=== PATIENT | female | born 1975 | race Caucasian/White ===

== ENCOUNTER → 2017-06-10 | Outpatient (CLI) | payer BC ==
[~2017-06-10] MED LIST: COLC1CAP PO; IBUP80TA PO; INDO50CA PO; TYLE500T78 PO
== END ==
LOC: M RAD 12:41
PROVIDERS: ATTEND Physician Assistant
DX: R51 Headache (principal)

== ENCOUNTER → 2017-06-22 | Outpatient (CLI) | payer BC ==
--- NOTE | 2017-06-22 11:25 | REP ---
MRI BRAIN: REASON: Headaches. COMPARISON: 09/18/2006, which was normal. The exam was ordered with and without intravenous gadolinium, however, the technical note in the [employer] is that the patient refused the contrast injection. TECHNIQUE: Sagittal T1. Axial T2, FLAIR, DWI and ADC. FINDINGS: The craniocervical junction is normal. There is no cerebellar tonsillar ectopia. The visualized portions of the spinal cord and neural canal are within normal limits. The ventricles and sulci are within normal limits for the patient's age. There are no extra-axial fluid collections. There is o shift of the midline structures. The deep cerebral white matter is within normal limits. Diffusion weighted images and ADC mapping shows no signal abnormality. The orbital and petrous structures, cerebellopontine angles, and posterior fossa are within normal limits. The sella turcica, cavernous and paracavernous structures are within normal limits. The visualized portions of the paranasal sinuses and the mastoid air cells are clear. IMPRESSION: Unremarkable MRI examination of the brain. There has been no change from the prior exam. Signed by Blair Heredia DO 06/22/2017 01:22 P
== END ==
LOC: M RAD 08:14
PROVIDERS: ATTEND Physician Assistant
DX: R51 Headache (principal); E66.01 Morbid (severe) obesity due to excess calories

== ENCOUNTER 2017-08-02 11:26 | Emergency (ER) | payer BC ==
[~2017-08-02] VITALS: Ht 167.6 cm; Wt 113.6 kg
[2017-08-02] MEDS ORDERED: TYLE500T78 PO (11:35)
[2017-08-02] MEDS ORDERED: IBUP80TA PO (11:35)
[2017-08-02 12:39] LABS: BASO % 0.4 % (0.0-1.0); EOS # 0.2 K/mm3 (0.0-0.50); LARGE UNSTAINED CELL # 0.1 K/mm3 (0.0-0.4); LARGE UNSTAINED CELL % 1.1 % (0.0-4.0); LYMPH # 2.8 K/mm3 (1.5-4.5); LYMPH % 24.7 % (24.0-44.0); MEAN CORPUSCULAR HEMOGLOBIN 30.5 pg (27.0-33.0); MEAN CORPUSCULAR HGB CONC 35.6 g/dl (32.0-36.5); MEAN CORPUSCULAR VOLUME 85.7 fl (80.0-96.0); MONO # 0.3 K/mm3 (0.0-0.8); NEUTROPHILS # 7.3 K/mm3 (1.8-7.7); NEUTROPHILS % 68.8 % (36.0-66.0); PLATELET COUNT, AUTOMATED 321 k/mm3 (150-450); RED CELL DISTRIBUTION WIDTH 13.9 % (11.5-14.5); WHITE BLOOD COUNT 10.6 K/mm3 (4.0-10.0)
--- NOTE | 2017-08-02 12:43 | REP ---
Clinical: Pain and swelling. Technique: AP, lateral, bilateral oblique views of the left elbow. Findings: Degenerative changes are appreciated with subtle cortical irregularity and soft tissue calcifications along the medial and lateral humeral condyles and olecranon process. No acute fracture dislocation. No effusion. Impression: Degenerative changes. Mild posterior swelling. No acute fracture dislocation. Signed by Zacarias Koenig MD 08/02/2017 12:35 P
[2017-08-02 12:45] LABS: ANION GAP 9 MEQ/L (8-16); BLOOD UREA NITROGEN 9 MG/DL (7-18); CALCIUM LEVEL 8.5 MG/DL (8.5-10.1); CARBON DIOXIDE LEVEL 25 MEQ/L (21-32); CHLORIDE LEVEL 107 MEQ/L (98-107); CREATININE FOR GFR 0.55 MG/DL (0.55-1.02); GLOMERULAR FILTRATION RATE > 60.0 (>58); GLUCOSE, FASTING 85 MG/DL (70-105); SODIUM LEVEL 141 MEQ/L (136-145); URIC ACID 6.1 MG/DL (2.6-6.0)
[2017-08-02 13:36] LABS: ERYTHROCYTE SEDIMENTATION RATE 31 mm/hr (0-20)
[2017-08-02] MEDS ORDERED: INDO50CA PO (13:43)
[2017-08-02] MEDS ORDERED: COLC1CAP PO (13:43)
[2017-08-02 13:51] VITALS: BP 154/79
== END 2017-08-02 13:52 | disposition home or self-care (01) ==
LOC: M ED 11:26
DX: M19.022 Primary osteoarthritis, left elbow (principal); M10.022 Idiopathic gout, left elbow

== ENCOUNTER → 2020-02-07 | Outpatient (CLI) | payer BC ==
[~2020-02-07] MED LIST changes: -INDO50CA PO; +INDO50CA91 PO
--- NOTE | 2020-02-10 12:44 | SLEEPCENT ---
DATE OF STUDY: 02/07/2020 ORDERED BY: Dr. Vu Gonzalez Nocturnal polysomnography was performed for evaluation of sleep physiology in this patient with a history of snoring and irregular breathing in sleep. 7 hours and 34 minutes of data were reviewed. There were 418 minutes of sleep identified. Sleep latency was short at 6 minutes. Rapid eye movement (REM) latency was mildly prolonged at 113 minutes. Sleep architecture was fair with three REM cycles. Overall sleep efficiency 92.9%. The electrocardiogram showed sinus rhythm with an average heart rate of 70 beats per minute. EEG showed normal waveforms for awake and sleep. There were 56 respiratory events identified of 10 seconds in duration or greater for an apnea-hypopnea index of 8. The events were obstructive, not exclusive to sleep stage nor body posture. Arousals from respiratory events occurred 2.2 times per hour. Oxygen desaturations were seen into the low 80s. There was some activity in the limb leads, but limb movement arousals were only 2.7 per hour. IMPRESSION: Obstructive sleep apnea syndrome (G47.33). Apnea-hypopnea index 8. RECOMMENDATIONS: The patient should be encouraged to return to the sleep disorder center for pressure therapy. In the interim, alcohol and sedative avoidance should be practiced and caution exercised during the operation of motor vehicles.
== END ==
LOC: M SLEEP 19:34
PROVIDERS: ATTEND Internal Medicine Pulmonary Disease
DX: G47.33 Obstructive sleep apnea (adult) (pediatric) (principal)

== ENCOUNTER → 2020-02-29 | Outpatient (REF) | payer BC ==
[2020-02-29 13:25] LABS: BASO # 0.1 10^3/uL (0.0-0.2); BASO % 0.7 % (0.0-1.0); EOS # 0.3 10^3/uL (0.0-0.5); EOS % 2.7 % (0.0-3.0); HEMATOCRIT 39.6 % (36.0-47.0); HEMOGLOBIN 13.5 g/dl (12.0-15.5); LYMPH # 2.9 10^3/uL (1.5-5.0); LYMPH % 27.6 % (24.0-44.0); MEAN CORPUSCULAR HEMOGLOBIN 29.7 pg (27.0-33.0); MEAN CORPUSCULAR HGB CONC 34.1 g/dl (32.0-36.5); MONO # 0.5 10^3/uL (0.0-0.8); MONO % 5.1 % (0.0-5.0); NEUTROPHILS # 6.7 10^3/uL (1.5-8.5); NEUTROPHILS % 63.3 % (36.0-66.0); PLATELET COUNT, AUTOMATED 360 10^3/uL (150-450); RED BLOOD COUNT 4.55 10^6/uL (4.00-5.40); WHITE BLOOD COUNT 10.5 10^3/uL (4.0-10.0)
[2020-02-29 13:42] LABS: ERYTHROCYTE SEDIMENTATION RATE 46 mm/hr (0-20)
[2020-02-29 13:51] LABS: ALT/SGPT 22 U/L (12-78); C REACTIVE PROTEIN QUANTITATIV 1.17 MG/DL (0.00-0.30); CREATININE FOR GFR 0.51 MG/DL (0.55-1.30); GLOMERULAR FILTRATION RATE > 60.0 (>58)
== END ==
LOC: M LAB REF 12:59
PROVIDERS: ATTEND Internal Medicine
DX: L40.50 Arthropathic psoriasis, unspecified (principal); Z79.899 Other long term (current) drug therapy

== ENCOUNTER → 2020-03-30 | Outpatient (CLI) | payer BC ==
--- NOTE | 2020-04-05 09:09 | SLEEPCENT ---
DATE OF PROCEDURE: ORDERED BY: Vu Gonzalez DO Nocturnal polysomnography was performed for the titration of pressure therapy in this patient with obstructive sleep apnea syndrome. Apnea-hypopnea index of 8. For testing the patient was fit with a Resp[employer]ics Cassie View full face mask of small size; 4 cm of water pressure were applied to the circuit and the lights were extinguished. 8 hours and 3 minutes of data were reviewed. There were 370.5 minutes of sleep identified. Sleep latency was prolonged 50.5 minutes. Rapid eye movement (REM) latency was normal at 97 minutes. Sleep architecture improved with optimal pressure therapy. There were 3 REM cycles noted. Overall sleep efficiency was 79%. The patient's electrocardiogram showed a sinus rhythm with an average heart rate of 80 beats per minute. Electroencephalogram (EEG) showed normal waveforms for awake and sleep. Respiratory events were reasonably palliated with CPAP at a pressure of +6. Remaining measures of sleep physiology were normal. IMPRESSION: Obstructive sleep apnea syndrome (G47.33). RECOMMENDATIONS: Nightly use of pressure therapy 6 cm of water.
== END ==
LOC: M SLEEP 20:00
PROVIDERS: ATTEND Internal Medicine Pulmonary Disease
DX: G47.33 Obstructive sleep apnea (adult) (pediatric) (principal)

== ENCOUNTER 2020-05-06 20:28 | Day surgery (SDC) | payer BC ==
[~2020-05-06] VITALS: Ht 165.1 cm; Wt 111.4 kg
[2020-05-06] MEDS ORDERED: LEFL1TAB4 PO (20:43)
[2020-05-06] MEDS ORDERED: NS 1,000 ML IV SCH (21:29)
[2020-05-06] MEDS ORDERED: MORPHINE 4 MG/ML 1ML VIAL/SYRINGE (J2270) IV ONE (21:30)
[2020-05-06 21:40] LABS: BASO # 0.1 10^3/uL (0.0-0.2); BASO % 0.5 % (0.0-1.0); EOS # 0.3 10^3/uL (0.0-0.5); HEMATOCRIT 38.6 % (36.0-47.0); HEMOGLOBIN 13.3 g/dl (12.0-15.5); LYMPH # 3.3 10^3/uL (1.5-5.0); MEAN CORPUSCULAR HEMOGLOBIN 29.1 pg (27.0-33.0); MEAN CORPUSCULAR HGB CONC 34.5 g/dl (32.0-36.5); MEAN CORPUSCULAR VOLUME 84.5 fl (80.0-96.0); MONO # 0.8 10^3/uL (0.0-0.8); MONO % 4.9 % (0.0-5.0); NEUTROPHILS # 11.2 10^3/uL (1.5-8.5); NEUTROPHILS % 71.2 % (36.0-66.0); PLATELET COUNT, AUTOMATED 319 10^3/uL (150-450); RED BLOOD COUNT 4.57 10^6/uL (4.00-5.40); WHITE BLOOD COUNT 15.7 10^3/uL (4.0-10.0)
[2020-05-06] MEDS: ONDANSETRON 4MG/2ML VIAL IV ONE ×2 (21:47→21:51)
[2020-05-06 22:09] LABS: ALBUMIN 3.5 GM/DL (3.2-5.2); ALT/SGPT 40 U/L (12-78); BILIRUBIN,DIRECT < 0.1 MG/DL (0.0-0.2); BILIRUBIN,TOTAL 0.3 MG/DL (0.2-1.0); BLOOD UREA NITROGEN 8 MG/DL (7-18); CALCIUM LEVEL 8.4 MG/DL (8.5-10.1); CARBON DIOXIDE LEVEL 26 MEQ/L (21-32); CHLORIDE LEVEL 108 MEQ/L (98-107); GLOMERULAR FILTRATION RATE > 60.0 (>58); GLUCOSE, FASTING 100 MG/DL (70-100); LIPASE 75 U/L (73-393); POTASSIUM SERUM 3.7 MEQ/L (3.5-5.1); SODIUM LEVEL 142 MEQ/L (136-145); TOTAL PROTEIN 7.1 GM/DL (6.4-8.2)
[2020-05-06 22:13] LABS: HCG, SERUM QUALITATIVE NEGATIVE (NEGATIVE)
[2020-05-06] MEDS ORDERED: ISOVUE-370 76% 100ML VIAL As Ordered ONE (22:14)
--- NOTE | 2020-05-06 22:48 | REPVR ---
PROCEDURE INFORMATION: Exam: CT Abdomen And Pelvis With Contrast Exam date and time: 05/06/2020 10:21 PM Age: 45 years old Clinical indication: Abdominal pain; Localized; Right lower quadrant (rlq); Additional info: Central/rlq abd pain TECHNIQUE: Imaging protocol: Computed tomography of the abdomen and pelvis with intravenous contrast. Radiation optimization: All CT scans at this facility use at least one of these dose optimization techniques: automated exposure control; mA and/or kV adjustment per patient size (includes targeted exams where dose is matched to clinical indication); or iterative reconstruction. Contrast material: ISOVUE 370; Contrast volume: 100 ml; Contrast route: IV; COMPARISON: CT ABD PELVIS W/O CONTRAST 02/22/2014 12:08 PM (The report from this study was not available for review at the time of this interpretation.) FINDINGS: Lungs: The imaged portions of the lung bases are clear. The lungs were not fully imaged. Heart: No cardiomegaly or pericardial effusion. Diaphragm: Intact. Liver: The attenuation of the liver is more than 40 Hounsfield units lower in attenuation compared to the spleen, which is compatible with fatty liver infiltration. No liver lesion is seen. The contour of the liver is smooth. The liver is enlarged and measures 19.2 cm in craniocaudal dimension at the level of the right midclavicular line. Gallbladder and bile ducts: No calcified gallstones are noted. No gallbladder wall thickening, pericholecystic fluid, or pericholecystic inflammatory changes are identified. No dilation of the bile ducts is noted. No calcified stones are seen in the common bile duct. Pancreas: Normal. No dilation of the main pancreatic duct is noted. There is no inflammatory fat stranding around the pancreas to suggest acute pancreatitis. Spleen: Normal. No splenomegaly is noted. Adrenals: Normal. No adrenal mass is noted. Kidneys and ureters: The kidneys are normal in appearance. No renal lesion is noted. No stones are noted in the kidneys or ureters. There is no hydronephrosis or hydroureter. There are no wedge-shaped areas of low attenuation in the kidneys to suggest pyelonephritis. There is no renal abscess or perinephric fluid collection. Stomach and bowel: There is thickening of the wall of the gastric antrum. The small bowel is unremarkable. There is no evidence for a bowel obstruction, diverticulosis, diverticulitis, colitis, perforated viscus, pneumatosis intestinalis, intussusception, or volvulus. Appendix: The appendix is dilated, particularly at its distal portion, measuring up to 10 mm in diameter and there is mild inflammatory fat stranding around the distal portion of the appendix, which are findings compatible with acute appendicitis (images 55-59 of the coronal series 202). The appendix extends into the lower mid abdomen. No rupture of the appendix is noted. There is no appendicolith. Intraperitoneal space: No free air. No ascites. No asbcess. Retroperitoneal space: No fluid collection. No mass. Vasculature: The abdominal aorta is patent, normal in caliber, and there is no dissection. The iliac arteries, common femoral arteries, renal arteries, celiac artery, superior mesenteric artery, and inferior mesenteric artery are patent. The common femoral veins, iliac veins, inferior vena cava, hepatic veins, portal veins, splenic vein, superior mesenteric vein, inferior mesenteric vein, and renal veins are patent. Lymph nodes: No enlarged lymph nodes. Bladder: The partially distended urinary bladder is unremarkable. No stones or masses are seen in the bladder. Reproductive: The uterus is anterverted and unremarkable. The ovaries are unremarkable. Bones/joints: There is no fracture or dislocation. Incidental note is made of a small bone island in the left iliac bone that is unchanged compared to the prior CT abdomen and pelvis on 02/22/2014. There are degenerative changes in the lower lumbar spine. Soft tissues: Unremarkable. No hernia. No soft tissue fluid collection. IMPRESSION: 1. Acute appendicitis. No rupture of the appendix or abscess. 2. Enlarged, fatty liver. Electronically signed by: Rogelio Campuzano On 05/06/2020 22:47:19 PM
[2020-05-06] MEDS ORDERED: ERTAPENEM SODIUM 1 GM in NS MINI-BAG PLUS 50 ML IV ONE (23:00)
--- NOTE | 2020-05-06 23:15 | HPEPDOC ---
General Surgery H&P Date of Admission May 06, 2020 History and Physical CHIEF COMPLAINT: abdominal pain HISTORY OF PRESENT ILLNESS: Patient presents with one day history of abdominal pain and nausea that started roughly at 10 am today. ALLERGIES: Please see below. HOME MEDICATIONS: Please see below. PAST MEDICAL HISTORY: 1. rheumatoid arthritis 2. morbid obesity 3. sleep apnea. PAST SURGICAL HISTORY: 1. psoriatric arthritis PERSONAL/SOCIAL HISTORY: Denies smoking, alcohol use, or recreational drug use. REVIEW OF SYSTEMS: GENERAL: Denies chills, fatigue, fever, weight gain and weight loss. HEENT: Denies blurred vision and double vision. Denies ear symptoms. Denies hoarseness. NECK: Denies any neck pain. CARDIOVASCULAR: Denies chest pain and palpitations. MUSCULOSKELETAL: reports joint pains h/o psoriatric arthritis, no use of steroids. SKIN: Denies rash. NEUROLOGIC: Denies headache, stroke and transient ischemic attack. PSYCHIATRIC: Denies anxiety and depression. ENDOCRINE: Denies thyroid disease. HEMATOLOGY/ONCOLOGY: Denies any bleeding or clotting disorder. HEART: Denies any chest pains, palpitations, paroxysmal dyspnea, orthopnea. PULMONARY: recently diagnosed with sleep apnea on cpap since last . GASTROINTESTINAL: see HPI. GENITOURINARY: Denies dysuria, frequency, hematuria and nocturia. ENDOCRINE: Denies polydipsia, polyphagia, polyuria, heat or cold intolerance. INFECTIOUS: Denies any recent upper respiratory tract infection, UTI, need for use of antibiotics. NUTRITION: reports fair appetite. PHYSICAL EXAMINATION: VITAL SIGNS: Please see below. GENERAL APPEARANCE: mildly uncomfortable, not ill appearing. Awake, alert, oriented. HEENT: Normocephalic, atraumatic. [place] palpebral conjunctivae. Anicteric sclerae. Lips moist. CHEST: No chest wall abnormalities. Normal respiratory motion/effort. NECK: Supple. No thyromegaly. No lymphadenopathies. LUNGS: Lung sounds are clear to auscultation bilaterally. No wheezing appreciated. HEART: No chest wall abnormalities. Heart rate and rhythm are regular with no murmurs. ABDOMEN: obese abdomen, nondistended mild tenderness over suprapubic and rlq area with mild guarding. SKIN: Warm, moist. EXTREMITIES: Extremities have no deformities. No edema identified. NEUROLOGICAL: awake, alert, oriented. ANCILLARIES: . LABORATORY DATA: Please see below. MICROBIOLOGY: Please see below. IMAGING: CT abdomen and pelvis acute appendicitis IMPRESSION AND PLAN: Acute appendicitis with localized peritonitis. Patient appears to have early/noncomplicated appendicitis. We discussed the treatment options which includes appendectomy and nonoperative treatment with IV antibiotics; the risks and benefits of treatment and nontreatment. The most expedient way for full recovery still remains operative treatment. She was counseled on laparoscopic appendectomy Risks of procedures, benefits, details of the procedure explained to the patient and consent has been obtained. She receive a dose of invanz from the emergency room doctor which should be a sufficient perioperative dose. Vital Signs Vital Signs Date Time Temp Pulse Resp B/P (MAP) Pulse Ox O2 Delivery O2 Flow Rate FiO2 05/06/20 22:01 170/72 (104) 05/06/20 21:58 94 98 05/06/20 20:29 99.8 16 Room Air Laboratory Data Labs 24H Laboratory Tests 2 05/06/20 21:30: Immature Granulocyte % (Auto) 0.4, Neutrophils (%) (Auto) 71.2H, Lymphocytes (%) (Auto) 21.0L, Monocytes (%) (Auto) 4.9, Eosinophils (%) (Auto) 2.0, Basophils (%) (Auto) 0.5, Neutrophils # (Auto) 11.2H, Lymphocytes # (Auto) 3.3, Monocytes # (Auto) 0.8, Eosinophils # (Auto) 0.3, Basophils # (Auto) 0.1, Nucleated Red Blood Cells % (auto) 0.0, Urine Color YELLOW, Urine Appearance CLEAR, Urine pH 6.0, Urine Specific [place] 1.014, Urine Protein NEGATIVE, Urine Glucose (UA) NEGATIVE, Urine Ketones NEGATIVE, Urine Blood NEGATIVE, Urine Nitrite NEGATIVE, Urine Bilirubin NEGATIVE, Urine Urobilinogen 0.2, Urine Leukocyte Esterase NEGATIVE, Urine WBC (Auto) 0, Urine RBC (Auto) 1, Urine Hyaline Casts (Auto) 0, Urine Bacteria (Auto) NEGATIVE, Urine Squamous Epithelial Cells 0, Urine Mucus (Auto) SMALL, Urine Sperm (Auto) 05/06/20 21:31: Anion Gap 8, Glomerular Filtration Rate > 60.0, Calcium Level 8.4L, Total Bilirubin 0.3, Direct Bilirubin < 0.1, Aspartate Amino Transf (AST/SGOT) 21, Alanine Aminotransferase (ALT/SGPT) 40, Alkaline Phosphatase 86, Total Protein 7.1, Albumin 3.5, Albumin/Globulin Ratio 1.0L, Lipase 75, Human Chorionic Gonadotropin, Qual NEGATIVE CBC/BMP Laboratory Tests 05/06/20 21:30 05/06/20 21:31 Home Medications Scheduled Leflunomide (Leflunomide) 20 Mg Tablet, 20 MG PO QHS, (Reported) Allergies Coded Allergies: codeine (Verified Adverse Reaction, Mild, nausea/vomiting, 05/06/20) A-FIB/CHADSVASC A-FIB History Current/History of A-Fib/PAF?: No Current PO Anticoag Therapy: No SIMONE WORKMAN MD May 06, 2020 23:14
[2020-05-07] VITALS (11 sets, daily range): BP systolic 102–165; BP diastolic 75–94; O2SAT 94–97
[2020-05-07] MEDS: LR 1,000 ML IV SCH ×4 (00:04→18:17)
[2020-05-07] MEDS ORDERED: ERTAPENEM 1GM VIAL(INVanz) (J1335 PER 500MG) As Ordered ONE (00:09)
[2020-05-07] MEDS ORDERED: propofoL 200 MG/20 ML VIAL As Ordered ONE (02:28)
[2020-05-07] MEDS ORDERED: ROCURONIUM BROMIDE 50 MG/5 ML VIAL As Ordered ONE (02:28)
[2020-05-07] MEDS ORDERED: ONDANSETRON 4MG/2ML VIAL As Ordered ONE (02:28)
[2020-05-07] MEDS ORDERED: LIDOCAINE 2% 100MG/5ML SDV (FOR ANES.) As Ordered ONE (02:28)
[2020-05-07] MEDS ORDERED: dexameTHASONE 4 MG/ML 1ML VIAL (J1100 PER 1MG) As Ordered ONE (02:28)
[2020-05-07] MEDS ORDERED: MIDAZOLAM INJ 2MG/2ML VIAL (J2250 PER 1MG) As Ordered ONE (02:29)
[2020-05-07] MEDS ORDERED: fentaNYL 250 MCG/5 ML INJECTION (J3010) As Ordered ONE (02:30)
[2020-05-07] MEDS ORDERED: SUCCINYLCHOLINE 100 MG/5 ML SYRINGE (J0330) As Ordered ONE (02:35)
[2020-05-07] MEDS ORDERED: BUPIVACAINE HCL 0.25% 30ML VIAL As Ordered ONE (02:35)
[2020-05-07] MEDS ORDERED: LIDOCAINE 1% SDV 30ML VIAL As Ordered ONE (02:35)
[2020-05-07] MEDS ORDERED: KETOROLAC 60 MG/2 ML VIAL As Ordered ONE (03:46)
[2020-05-07] MEDS ORDERED: SUGAMMADEX SODIUM 500 MG/5 ML VIAL (BRIDION) As Ordered ONE (03:46)
[2020-05-07] MEDS ORDERED: fentaNYL 100 MCG/2 ML INJECTION (J3010) IV PRN (04:45)
[2020-05-07] MEDS ORDERED: METOCLOPRAMIDE INJ 10MG/2ML VIAL (J2765 PER 1) IV PRN (04:45)
[2020-05-07] MEDS ORDERED: oxyCODONE 5MG TAB PO PRN (04:45)
[2020-05-07] MEDS ORDERED: ONDANSETRON 4MG/2ML VIAL IV PRN (04:45)
[2020-05-07] MEDS ORDERED: LR 1,000 ML IV SCH (04:45)
[2020-05-07] MEDS: ONDANSETRON 4MG/2ML VIAL IV PRN ×3 (05:17→20:49)
[2020-05-07] MEDS: PERCOCET 5MG/325MG TAB PO PRN ×2 (08:41→20:50)
[2020-05-07] MEDS: IBUPROFEN 600 MG TAB PO PRN ×2 (08:45→18:29)
[2020-05-08 02:00] VITALS: BP 141/73
[2020-05-08 06:00] VITALS: BP 133/70
[2020-05-08 07:47] LABS: BASO % 0.2 % (0.0-1.0); EOS % 0.2 % (0.0-3.0); HEMATOCRIT 33.6 % (36.0-47.0); LYMPH # 2.4 10^3/uL (1.5-5.0); LYMPH % 19.9 % (24.0-44.0); MEAN CORPUSCULAR HGB CONC 33.6 g/dl (32.0-36.5); MEAN CORPUSCULAR VOLUME 86.2 fl (80.0-96.0); MONO # 0.6 10^3/uL (0.0-0.8); NEUTROPHILS # 9.1 10^3/uL (1.5-8.5); NEUTROPHILS % 74.2 % (36.0-66.0); PLATELET COUNT, AUTOMATED 314 10^3/uL (150-450); WHITE BLOOD COUNT 12.3 10^3/uL (4.0-10.0)
[2020-05-08 07:48] LABS: HEMOGLOBIN 11.3 g/dl (12.0-15.5)
[2020-05-08 10:00] VITALS: BP 137/76
[2020-05-08] MEDS ORDERED: ONDA-83 PO (10:11)
[2020-05-08] MEDS ORDERED: IBUP-1022 PO (10:11)
== END 2020-05-08 11:38 | disposition home or self-care (01) ==
LOC: M ED 20:28 → M SDC 20:29 → ENRESERV 23:38 → M MSPAV 05-07 01:00 → M SDC 05-08 11:38
PROVIDERS: ATTEND Surgery
DX: K35.890 Other acute appendicitis without perforation or gangrene (principal); M06.9 Rheumatoid arthritis, unspecified; G47.30 Sleep apnea, unspecified; E66.01 Morbid (severe) obesity due to excess calories; Z88.5 Allergy status to narcotic agent; Z79.899 Other long term (current) drug therapy
CPT/HCPCS: 36415; 44970; 74177; 80048; 80076; 81001; 83690; 84703; 85025; 87486; 87581; 87633; 87798; 88304; 93041; 96361; 96365; 96375; 96376; 99285; J0330; J1100; J1335; J1885; J2250; J2405; J3010; Q9967

== ENCOUNTER → 2020-09-23 | Outpatient (CLI) | payer BC ==
[~2020-09-23] MED LIST changes: +IBUP-1022 PO; +LEFL1TAB4 PO; +ONDA-83 PO
[2020-09-23 09:53] LABS: BASO # 0.1 10^3/uL (0.0-0.2); BASO % 0.7 % (0.0-1.0); EOS # 0.2 10^3/uL (0.0-0.5); EOS % 2.3 % (0.0-3.0); HEMATOCRIT 41.2 % (36.0-47.0); HEMOGLOBIN 13.8 g/dl (12.0-15.5); LYMPH # 2.8 10^3/uL (1.5-5.0); LYMPH % 29.5 % (24.0-44.0); MEAN CORPUSCULAR HEMOGLOBIN 28.5 pg (27.0-33.0); MEAN CORPUSCULAR HGB CONC 33.5 g/dl (32.0-36.5); MEAN CORPUSCULAR VOLUME 85.1 fl (80.0-96.0); MONO # 0.4 10^3/uL (0.0-0.8); MONO % 4.1 % (0.0-5.0); NEUTROPHILS % 62.8 % (36.0-66.0); PLATELET COUNT, AUTOMATED 319 10^3/uL (150-450); RED BLOOD COUNT 4.84 10^6/uL (4.00-5.40); WHITE BLOOD COUNT 9.6 10^3/uL (4.0-10.0)
[2020-09-23 10:08] LABS: C REACTIVE PROTEIN QUANTITATIV 1.79 MG/DL (0.00-0.30)
[2020-09-23 10:18] LABS: ERYTHROCYTE SEDIMENTATION RATE 37 mm/hr (0-20)
== END ==
LOC: M LAB 09:23
PROVIDERS: ATTEND Internal Medicine
DX: Z51.81 Encounter for therapeutic drug level monitoring (principal); Z79.899 Other long term (current) drug therapy

== ENCOUNTER → 2020-11-16 | Outpatient (CLI) | payer BC ==
[2020-11-16 11:57] LABS: ALT/SGPT 37 U/L (12-78)
== END ==
LOC: M WUC 08:58
PROVIDERS: ATTEND Internal Medicine
DX: Z79.899 Other long term (current) drug therapy (principal)

== ENCOUNTER 2021-04-06 12:52 | Emergency (ER) | payer OTHER, BC ==
[~2021-04-06] VITALS: Ht 167.6 cm; Wt 112.1 kg
[2021-04-06] MEDS ORDERED: ACETAMINOPHEN 325 MG TAB PO ONE (14:20)
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
[2021-04-06] MEDS ORDERED: KETOROLAC 60MG 2ML VIAL IM ONE (15:10)
[2021-04-06 16:10] VITALS: BP 150/90
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
== END 2021-04-06 16:16 | disposition home or self-care (01) ==
LOC: M ED 12:52
DX: S20.212A Contusion of left front wall of thorax, initial encounter (principal); S13.4XXA Sprain of ligaments of cervical spine, initial encounter; S06.0X0A Concussion without loss of consciousness, initial encounter; M75.82 Other shoulder lesions, left shoulder; I10 Essential (primary) hypertension; V53.5XXA Driver of pick-up truck or van injured in collision with car, pick-up truck or van in traffic accident, initial encounter; Y92.9 Unspecified place or not applicable; Y93.9 Activity, unspecified; Y99.9 Unspecified external cause status; M51.34 Other intervertebral disc degeneration, thoracic region; Z79.899 Other long term (current) drug therapy; Z88.5 Allergy status to narcotic agent
CPT/HCPCS: 70450; 71101; 72125; 72128; 73030; 80047; 81001; 84484; 93005; 96372; 99284; J1885

== ENCOUNTER → 2021-04-15 | Outpatient (CLI) | payer OTHER, BC ==
--- NOTE | 2021-04-15 16:42 | REP ---
INDICATION: PAIN. COMPARISON: None. Prior three-view left shoulder series of 04/06/2021 reviewed TECHNIQUE: Single axillary view left shoulder was obtained FINDINGS: Once again, there are soft tissue calcifications adjacent to the humeral head in the anterior soft tissues. IMPRESSION: Soft tissue calcifications again noted. Chronic calcific supraspinatus tendinitis cannot be ruled out. Consider follow-up with MRI. <Electronically signed by Blair Heredia > 04/15/21 [id number]
== END ==
LOC: M SOG 14:18
PROVIDERS: ATTEND Orthopaedic Surgery Sports Medicine
DX: M75.32 Calcific tendinitis of left shoulder (principal); M25.512 Pain in left shoulder

== ENCOUNTER → 2021-04-24 | Outpatient (CLI) | payer OTHER, BC ==
--- NOTE | 2021-04-24 08:28 | REP ---
INDICATION: F/U FX Status post arthroplasty. COMPARISON: None. TECHNIQUE: AP view of the pelvis with neutral and frog-lateral views of the left hip. FINDINGS: Pelvis is intact and age-appropriate. Hip joints demonstrate increased sclerosis to the acetabular roof with associated joint space narrowing which is relatively symmetric bilaterally on AP pelvic radiograph. The left hip also demonstrates small amount of calcification adjacent to the greater trochanter suggesting an element of tendinopathy. No evidence for acute or healed fracture. IMPRESSION: Mild degenerative changes as noted above. <Electronically signed by Zacarias Koenig > 04/24/21 2018
== END ==
LOC: M SOG 08:47
PROVIDERS: ATTEND Orthopaedic Surgery Adult Reconstructive Orthopaedic Surgery
DX: M19.072 Primary osteoarthritis, left ankle and foot (principal); M25.562 Pain in left knee

== ENCOUNTER 2021-07-12 10:16 | Emergency (ER) | payer BC, OTHER ==
[~2021-07-12] VITALS: Ht 167.6 cm; Wt 106.7 kg
[2021-07-12] MEDS ORDERED: PENI500T PO (10:39)
[2021-07-12] MEDS ORDERED: NS 1,000 ML IV ONE (12:00)
[2021-07-12] MEDS ORDERED: AMPICILLIN SOD/SULBACTAM SOD 3 GM in D5W MINI-BAG PLUS 100 ML IV ONE (12:00)
[2021-07-12] MEDS ORDERED: KETOROLAC 30 MG/ML 1ML VIAL IV ONE (12:00)
[2021-07-12 13:03] LABS: BASO # 0.1 10^3/uL (0.0-0.2); BASO % 0.5 % (0.0-1.0); EOS % 0.3 % (0.0-3.0); HEMATOCRIT 45.2 % (36.0-47.0); LYMPH # 1.5 10^3/uL (1.5-5.0); LYMPH % 13.8 % (24.0-44.0); MEAN CORPUSCULAR HGB CONC 35.4 g/dl (32.0-36.5); MEAN CORPUSCULAR VOLUME 84.8 fl (80.0-96.0); MONO # 0.9 10^3/uL (0.0-0.8); MONO % 8.1 % (2.0-8.0); NEUTROPHILS # 8.1 10^3/uL (1.5-8.5); NEUTROPHILS % 76.7 % (36.0-66.0); PLATELET COUNT, AUTOMATED 322 10^3/uL (150-450); RED BLOOD COUNT 5.33 10^6/uL (4.00-5.40); WHITE BLOOD COUNT 10.5 10^3/uL (4.0-10.0)
[2021-07-12 13:17] LABS: BLOOD UREA NITROGEN 9 MG/DL (7-18); CALCIUM LEVEL 9.4 MG/DL (8.5-10.1); CARBON DIOXIDE LEVEL 25 MEQ/L (21-32); CHLORIDE LEVEL 105 MEQ/L (98-107); CREATININE FOR GFR 0.53 MG/DL (0.55-1.30); GLOMERULAR FILTRATION RATE > 60.0 (>58); GLUCOSE, FASTING 134 MG/DL (70-100); POTASSIUM SERUM 4.1 MEQ/L (3.5-5.1); SODIUM LEVEL 140 MEQ/L (136-145)
[2021-07-12] MEDS ORDERED: ISOVUE-370 76% 100ML VIAL As Ordered ONE (13:20)
--- NOTE | 2021-07-12 14:10 | REPVR ---
PROCEDURE INFORMATION: Exam: CT Maxillofacial With Contrast Exam date and time: 07/12/2021 12:30 PM Age: 46 years old Clinical indication: Right lower molar infection. TECHNIQUE: Imaging protocol: Computed tomography images of the face with intravenous contrast. Radiation optimization: All CT scans at this facility use at least one of these dose optimization techniques: automated exposure control; mA and/or kV adjustment per patient size (includes targeted exams where dose is matched to clinical indication); or iterative reconstruction. Contrast material: ISOVUE 370; Contrast volume: 75 ml; Contrast route: INTRAVENOUS (IV); COMPARISON: CT Head without contrast 04/06/2021 2:18 PM FINDINGS: Orbital cavity: Orbits are normal. Globes are unremarkable. Bones/joints: No acute fracture. Paranasal sinuses: Normal. No air-fluid levels. Soft tissues: There is soft tissue swelling and induration within the buccal and lingual soft tissues of the right mandible. Findings are consistent with underlying inflammation/infection. No discrete fluid or air collection is seen to suggest an abscess. Submandibular/Parotid glands: There is subtle asymmetric enlargement of the right submandibular gland. No abnormal calcifications are seen. IMPRESSION: 1. There is soft tissue swelling and induration within the buccal and lingual soft tissues of the right mandible. Findings are consistent with underlying inflammation/infection. No discrete fluid or air collection is seen to suggest an abscess. Close clinical and imaging followup is recommended to confirm resolution following treatment. 2. There is subtle asymmetric enlargement of the right submandibular gland. No abnormal calcifications are seen. Please correlate clinically. Electronically signed by: Monster Malik On 07/12/2021 14:10:00 PM
[2021-07-12] MEDS ORDERED: AUGM875T28 PO (14:18)
[2021-07-12] MEDS ORDERED: HYDR-4571 PO (14:22)
[2021-07-12] MEDS ORDERED: ONDANSETRON 4MG/2ML VIAL IV ONE (14:25)
[2021-07-12] MEDS ORDERED: MORPHINE 4 MG/ML 1ML VIAL/SYRINGE (J2270) IV ONE (14:25)
[2021-07-12 14:31] VITALS: BP 144/77
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
== END 2021-07-12 15:05 | disposition home or self-care (01) ==
LOC: M ED 10:16
DX: K02.9 Dental caries, unspecified (principal); Z79.899 Other long term (current) drug therapy; Z88.5 Allergy status to narcotic agent
CPT/HCPCS: 70487; 80048; 85025; 86140; 96365; 96366; 96375; 99283; J1885; J2270; J2405; Q9967

== ENCOUNTER → 2021-10-23 | Outpatient (REF) | payer BC ==
[~2021-10-23] MED LIST changes: +AUGM875T28 PO; +HYDR-4571 PO; +PENI500T PO
[2021-10-23 13:37] LABS: BASO # 0.1 10^3/uL (0.0-0.2); BASO % 0.9 % (0.0-1.0); EOS # 0.2 10^3/uL (0.0-0.5); EOS % 2.5 % (0.0-3.0); HEMATOCRIT 40.6 % (36.0-47.0); LYMPH # 2.9 10^3/uL (1.5-5.0); MEAN CORPUSCULAR HEMOGLOBIN 29.9 pg (27.0-33.0); MEAN CORPUSCULAR HGB CONC 34.5 g/dl (32.0-36.5); MEAN CORPUSCULAR VOLUME 86.8 fl (80.0-96.0); MONO # 0.6 10^3/uL (0.0-0.8); MONO % 6.5 % (2.0-8.0); NEUTROPHILS # 5.2 10^3/uL (1.5-8.5); NEUTROPHILS % 57.7 % (36.0-66.0); PLATELET COUNT, AUTOMATED 356 10^3/uL (150-450); RED BLOOD COUNT 4.68 10^6/uL (4.00-5.40); WHITE BLOOD COUNT 9.1 10^3/uL (4.0-10.0)
[2021-10-23 13:44] LABS: ALBUMIN 3.7 GM/DL (3.2-5.2); ALT/SGPT 36 U/L (12-78); BILIRUBIN,TOTAL 0.3 MG/DL (0.2-1.0); BLOOD UREA NITROGEN 10 MG/DL (7-18); C REACTIVE PROTEIN QUANTITATIV 1.15 MG/DL (0.00-0.30); CALCIUM LEVEL 9.1 MG/DL (8.5-10.1); CARBON DIOXIDE LEVEL 28 MEQ/L (21-32); CHLORIDE LEVEL 107 MEQ/L (98-107); CREATININE FOR GFR 0.47 MG/DL (0.55-1.30); GLOMERULAR FILTRATION RATE > 60.0 (>58); GLUCOSE, FASTING 114 MG/DL (70-100); POTASSIUM SERUM 4.2 MEQ/L (3.5-5.1); SODIUM LEVEL 141 MEQ/L (136-145); TOTAL PROTEIN 7.4 GM/DL (6.4-8.2)
[2021-10-23 14:16] LABS: ERYTHROCYTE SEDIMENTATION RATE 31 mm/hr (0-20)
== END ==
LOC: M LABDRWAD 13:03
PROVIDERS: ATTEND Nurse Practitioner
DX: M19.90 Unspecified osteoarthritis, unspecified site (principal)

== ENCOUNTER → 2021-12-24 | Outpatient (REF) | payer BC ==
[2021-12-26 08:12] LABS: LDL DIRECT 112 mg/dL (0-99)
== END ==
LOC: M LAB REF 12:17
PROVIDERS: ATTEND Registered Nurse
DX: E78.00 Pure hypercholesterolemia, unspecified (principal)

== ENCOUNTER → 2022-06-12 | Outpatient (CLI) | payer BC ==
[2022-06-12 14:57] LABS: BASO # 0.1 10^3/uL (0.0-0.2); BASO % 0.7 % (0.0-1.0); EOS # 0.2 10^3/uL (0.0-0.5); EOS % 2.4 % (0.0-3.0); HEMATOCRIT 39.6 % (36.0-47.0); HEMOGLOBIN 13.5 g/dl (12.0-15.5); LYMPH # 2.5 10^3/uL (1.5-5.0); LYMPH % 29.3 % (24.0-44.0); MEAN CORPUSCULAR HEMOGLOBIN 29.7 pg (27.0-33.0); MEAN CORPUSCULAR HGB CONC 34.1 g/dl (32.0-36.5); MONO # 0.4 10^3/uL (0.0-0.8); NEUTROPHILS # 5.4 10^3/uL (1.5-8.5); PLATELET COUNT, AUTOMATED 307 10^3/uL (150-450); RED BLOOD COUNT 4.55 10^6/uL (4.00-5.40); WHITE BLOOD COUNT 8.6 10^3/uL (4.0-10.0)
[2022-06-12 15:28] LABS: ALBUMIN 3.9 GM/DL (3.2-5.2); ALT/SGPT 52 U/L (12-78); BILIRUBIN,TOTAL 0.3 MG/DL (0.2-1.0); BLOOD UREA NITROGEN 10 MG/DL (7-18); C REACTIVE PROTEIN QUANTITATIV 1.18 MG/DL (0.00-0.30); CALCIUM LEVEL 9.4 MG/DL (8.5-10.1); CARBON DIOXIDE LEVEL 23 MEQ/L (21-32); CHLORIDE LEVEL 106 MEQ/L (98-107); GLOMERULAR FILTRATION RATE > 60.0 (>58); GLUCOSE, FASTING 200 MG/DL (70-100); POTASSIUM SERUM 3.7 MEQ/L (3.5-5.1); SODIUM LEVEL 141 MEQ/L (136-145); TOTAL PROTEIN 7.3 GM/DL (6.4-8.2)
[2022-06-12 16:04] LABS: ERYTHROCYTE SEDIMENTATION RATE 2 mm/hr (0-20)
== END ==
LOC: M LAB 14:07
PROVIDERS: ATTEND Internal Medicine Rheumatology
DX: Z51.81 Encounter for therapeutic drug level monitoring (principal); Z79.899 Other long term (current) drug therapy

== ENCOUNTER → 2022-10-09 | Outpatient (CLI) | payer BC ==
[~2022-10-09] MED LIST changes: +ISOVUE-370 76% 100ML VIAL As Ordered ONE
== END ==
LOC: M RAD 14:30
PROVIDERS: ATTEND Registered Nurse
DX: R42 Dizziness and giddiness (principal)

== ENCOUNTER → 2022-10-29 | Outpatient (REF) | payer BC ==
[~2022-10-29] MED LIST changes: -ISOVUE-370 76% 100ML VIAL As Ordered ONE
[2022-10-29 13:55] LABS: URIC ACID 6.6 MG/DL (3.1-7.8)
[2022-10-29 13:58] LABS: RHEUMATOID FACTOR QUANT < 3.5 IU/ML (<14)
== END ==
LOC: M LAB REF 12:27
PROVIDERS: ATTEND Registered Nurse
DX: L40.52 Psoriatic arthritis mutilans (principal); E11.9 Type 2 diabetes mellitus without complications

== ENCOUNTER → 2022-11-28 | Outpatient (CLI) | payer BC | LOC: M RAD 08:08 | PROVIDERS: ATTEND Registered Nurse | DX: L40.52 Psoriatic arthritis mutilans (principal); M25.78 Osteophyte, vertebrae ==

== ENCOUNTER → 2023-07-07 | Outpatient (REF) | payer BC ==
[2023-07-07 17:39] LABS: C REACTIVE PROTEIN QUANTITATIV 1.6 MG/DL (<1.0)
[2023-07-07 17:41] LABS: PHOSPHORUS LEVEL 4.3 MG/DL (2.5-4.9)
[2023-07-07 17:42] LABS: TOTAL 25(OH) VITAMIN D 18.2 NG/ML (20.0-100.0)
== END ==
LOC: M SFHCRHEU 10:44
PROVIDERS: ATTEND Internal Medicine
DX: M25.50 Pain in unspecified joint (principal); M79.10 Myalgia, unspecified site

== ENCOUNTER → 2023-07-17 | Outpatient (CLI) | payer BC | LOC: M PLAIMG 13:53 | PROVIDERS: ATTEND Internal Medicine | DX: R93.6 Abnormal findings on diagnostic imaging of limbs (principal); M25.441 Effusion, right hand; M94.241 Chondromalacia, joints of right hand; R60.0 Localized edema ==

== ENCOUNTER → 2024-09-22 | Outpatient (REF) | payer BC ==
[~2024-09-22] MED LIST changes: -LEFL1TAB4 PO; +LEFL20TA15 PO
== END ==
LOC: M SFHCRHEU 17:41
PROVIDERS: ATTEND Internal Medicine
DX: Z53.9 Procedure and treatment not carried out, unspecified reason (principal)

== ENCOUNTER → 2024-12-06 | Outpatient (REF) | payer BC ==
[2024-12-06 17:09] LABS: APPEARANCE, URINE CLEAR (CLEAR); BACTERIA, URINE AUTO NEGATIVE (NEGATIVE); BILIRUBIN, URINE AUTO NEGATIVE (NEGATIVE); BLOOD, URINE BLOOD NEGATIVE (NEGATIVE); COLOR, URINE YELLOW (YELLOW); GLUCOSE, URINE (UA) AUTO NEGATIVE (NEGATIVE); KETONE, URINE AUTO NEGATIVE (NEGATIVE); LEUKOCYTE ESTERASE, URINE AUTO NEGATIVE (NEGATIVE); MUCUS, URINE SMALL (NEGATIVE); NITRITE, URINE AUTO NEGATIVE (NEGATIVE); PROTEIN, URINE AUTO NEGATIVE (NEGATIVE); RBC, URINE AUTO 1 /HPF (0-3); SPECIFIC GRAVITY URINE AUTO 1.017 (1.002-1.035); SQUAMOUS EPITHELIAL CELL UR AU 1 /HPF (0-6); UROBILINOGEN, URINE AUTO 0.2 mg/dL (0.0-2.0); WBC, URINE AUTO 1 /HPF (0-3)
== END ==
LOC: M LAB REF 15:58
PROVIDERS: ATTEND Internal Medicine
DX: Z01.818 Encounter for other preprocedural examination (principal)

== ENCOUNTER → 2025-02-14 | Outpatient (CLI) | payer BC | LOC: M LAB 16:30 | PROVIDERS: ATTEND Internal Medicine | DX: E55.9 Vitamin D deficiency, unspecified (principal) ==

== ENCOUNTER → 2025-07-04 | Outpatient (REF) | payer BC | LOC: M SFHCRHEU 13:00 | PROVIDERS: ATTEND Internal Medicine | DX: Z53.9 Procedure and treatment not carried out, unspecified reason (principal) ==

== ENCOUNTER → 2025-08-10 | Outpatient (CLI) | payer BC ==
[~2025-08-10] MED LIST changes: -IBUP-1022 PO; +IBUP600T42 PO
[2025-08-10 16:38] LABS: BASO # 0.1 10^3/uL (0.0-0.2); BASO % 0.5 % (0.0-1.0); EOS # 0.3 10^3/uL (0.0-0.5); EOS % 2.6 % (0.0-3.0); LYMPH # 3.9 10^3/uL (1.5-5.0); LYMPH % 37.8 % (24.0-44.0); MONO # 0.6 10^3/uL (0.0-0.8); MONO % 5.6 % (2.0-8.0); NEUTROPHILS # 5.5 10^3/uL (1.5-8.5); NEUTROPHILS % 53.0 % (36.0-66.0); PLATELET COUNT, AUTOMATED 362 10^3/uL (150-450)
[2025-08-10 17:06] LABS: ALT/SGPT 37 U/L (7.0-40); AST/SGOT 42 U/L (<34); CALCIUM LEVEL 9.3 MG/DL (8.5-10.1); CARBON DIOXIDE LEVEL 26 MMOL/L (20-31); CHLORIDE LEVEL 100 MMOL/L (98-107); CREATININE FOR GFR 0.51 MG/DL (0.55-1.30); GLOMERULAR FILTRATION RATE > 90.0 (>51); POTASSIUM SERUM 3.9 MMOL/L (3.5-5.1); SODIUM LEVEL 138 MMOL/L (136-145)
== END ==
LOC: M LAB 16:03
PROVIDERS: ATTEND Internal Medicine
DX: Z51.81 Encounter for therapeutic drug level monitoring (principal); Z79.1 Long term (current) use of non-steroidal anti-inflammatories (NSAID)